=== PATIENT | male | born 1975 | race Caucasian/White ===

== ENCOUNTER → 2018-04-12 | Outpatient (CLI) | payer OTHER ==
--- NOTE | 2018-04-12 18:59 | PULMONARY FUNCTION TEST ---
Spirometry is consistent with a mild obstructive pattern. Repeat study done following bronchodilator showed no significant change in function. Flow volume loops are consistent with spirometric findings. Lung volumes showed a normal TLC and FRC but with a slightly decreased RV. Diffusion capacity is normal at 110% of predicted.
== END | disposition home or self-care (01) ==
LOC: C.RC 12:43
PROVIDERS: ATTEND Nurse Practitioner Family
DX: J45.990 Exercise induced bronchospasm (principal); R07.89 Other chest pain; R06.02 Shortness of breath